=== PATIENT | female | born 1990 | race American Indian/Alaskan Native ===

== ENCOUNTER 2016-09-17 08:36 | Emergency (ER) | payer MEDICAID ==
[2016-09-17 09:28] VITALS: BP 116/73
[2016-09-17] MEDS ORDERED: MAGIC MOUTHWASH PO ONE (10:40)
--- NOTE | 2016-09-17 10:40 | Emergency Department Report ---
ED ENT HPI - General Chief complaint: Sore Throat Stated complaint: POSS STREP THROAT Time Seen by Provider: 09/17/16 10:18 Source: patient Mode of arrival: Ambulatory Limitations: No Limitations - History of Present Illness Initial comments: Patient is a 26-year-old female who presents to ED complaining of throat pain 4 days. Patient states pain started about 4 days ago and has been progressively worse. Patient states pain with swallowing and not difficulty eating due to pain. She describes pain as throbbing aching type pain with 8 out of 10 in intensity. Patient denies nausea/vomiting/cough/runny/abdominal pain/chest pain or shortness of breath. - Related Data Previous Rx's Medication Instructions Recorded Last Taken Type Ibuprofen [Motrin] 600 mg PO Q8H PRN #20 tablet 09/17/16 Unknown Rx predniSONE [Deltasone] 5 mg PO QDAY #6 tab 09/17/16 Unknown Rx Allergies Allergy/AdvReac Type Severity Reaction Status Date / Time No Known Allergies Allergy Unverified 09/17/16 09:26 ED Dental HPI - General Chief complaint: Sore Throat Stated complaint: POSS STREP THROAT Time Seen by Provider: 09/17/16 10:18 Source: patient Mode of arrival: Ambulatory Limitations: No Limitations - Related Data Previous Rx's Medication Instructions Recorded Last Taken Type Ibuprofen [Motrin] 600 mg PO Q8H PRN #20 tablet 09/17/16 Unknown Rx predniSONE [Deltasone] 5 mg PO QDAY #6 tab 09/17/16 Unknown Rx Allergies Allergy/AdvReac Type Severity Reaction Status Date / Time No Known Allergies Allergy Unverified 09/17/16 09:26 ED Review of Systems ROS: Stated complaint: POSS STREP THROAT Other details as noted in HPI Constitutional: denies: chills, fever Eyes: denies: eye pain, eye discharge, vision change ENT: throat pain. denies: ear pain, dental pain, hearing loss Respiratory: denies: cough, shortness of breath, wheezing Cardiovascular: denies: chest pain, palpitations Endocrine: no symptoms reported. denies: flushing, intolerance to cold, intolerance to heat Gastrointestinal: denies: abdominal pain, nausea, vomiting, diarrhea Genitourinary: denies: urgency, dysuria, discharge Musculoskeletal: denies: back pain, joint swelling, arthralgia Skin: denies: rash, lesions Neurological: denies: headache, weakness, paresthesias, abnormal gait Psychiatric: denies: anxiety, depression Hematological/Lymphatic: denies: easy bleeding, easy bruising, swollen glands ED Past Medical Hx - Past Medical History Previous Medical History?: No - Surgical History Past Surgical History?: No - Social History Smoking Status: Never Smoker Substance Use Type: None - Medications Home Medications: Home Medications Medication Instructions Recorded Confirmed Last Taken Type Ibuprofen [Motrin] 600 mg PO Q8H PRN #20 tablet 09/17/16 Unknown Rx predniSONE [Deltasone] 5 mg PO QDAY #6 tab 09/17/16 Unknown Rx ED Physical Exam - General Limitations: No Limitations General appearance: alert, in no apparent distress - Head Head exam: Present: atraumatic, normocephalic - Eye Eye exam: Present: normal appearance, PERRL, EOMI Pupils: Present: normal accommodation - ENT ENT exam: Present: mucous membranes moist - Expanded ENT Exam Expanded Ear exam: Present: normal external inspection Mouth exam: Present: normal external inspection, tongue normal. Absent: drooling, trismus, muffled voice Teeth exam: Present: normal inspection Throat exam: Positive: tonsillomegaly, tonsillar exudate, R peritonsillar mass, L peritonsillar mass - Neck Neck exam: Present: normal inspection, full ROM, lymphadenopathy. Absent: tenderness - Respiratory Respiratory exam: Present: normal lung sounds bilaterally. Absent: respiratory distress, wheezes, rales, rhonchi, stridor - Cardiovascular Cardiovascular Exam: Present: regular rate, normal rhythm. Absent: systolic murmur, diastolic murmur, rubs, gallop - GI/Abdominal GI/Abdominal exam: Present: soft, normal bowel sounds. Absent: tenderness, guarding, rebound - Extremities Exam Extremities exam: Present: normal inspection, full ROM. Absent: tenderness - Back Exam Back exam: Present: normal inspection, full ROM. Absent: CVA tenderness (R), CVA tenderness (L) - Neurological Exam Neurological exam: Present: alert, oriented X3 - Psychiatric Psychiatric exam: Present: normal affect, normal mood - Skin Skin exam: Present: warm, dry, intact, normal color. Absent: rash ED Course Vital Signs 09/17/16 09:26 Temperature 99.7 F H Pulse Rate 102 H Respiratory 16 Rate Blood Pressure 116/73 O2 Sat by Pulse 100 Oximetry ED Medical Decision Making - Medical Decision Making 26-year-old female presents with strep pharyngitis. ED course: Patient received Magic wash, Tylenol 650 mg. Rapid strep test orders. Rapid strep test positive. Discussed results with patient. Discussed patient treatment in the ER. Patient received 1.2 milliunits of penicillin IM. Discussed results with patient. Repeated vital signs prior to discharge. Vital signs temperature and pulse reduced. Patient patient to go home on prednisone. Discussed the patient took medication as prescribed. Discussed the patient includes a Tylenol when necessary for pain at home. Discussed the patient will follow-up with her primary care physician. Patient understands and will follow up. Critical care attestation.: If time is entered above; I have spent that time in minutes in the direct care of this critically ill patient, excluding procedure time. ED Disposition Clinical Impression: Streptococcal pharyngitis, Acute bacterial tonsillitis Disposition: DISCHARGED TO HOME OR SELFCARE Is pt being admited?: No Does the pt Need Aspirin: No Condition: Stable Instructions: Strep Throat (ED), Tonsillitis (ED) Prescriptions: predniSONE [Deltasone] 5 mg PO QDAY #6 tab Ibuprofen [Motrin] 600 mg PO Q8H PRN #20 tablet PRN Reason: Pain Referrals: PRIMARY CARE, [Primary Care Provider] - 3-5 Days Forms: Accompanied Note, Work/School Release Form(ED) Time of Disposition: 11:55
[2016-09-17] MEDS ORDERED: TYLENOL PO ONE (11:49)
[2016-09-17] MEDS ORDERED: BICILLIN L-A IM ONE (11:51)
== END 2016-09-17 12:47 | disposition home or self-care (01) ==
LOC: ED 08:36
DX: J02.0 Streptococcal pharyngitis (principal); J03.90 Acute tonsillitis, unspecified
CPT/HCPCS: 87430; 96372; 99282; J0561

== ENCOUNTER 2019-09-07 20:19 | Inpatient (IN) | payer MEDICAID ==
[2019-09-07] MEDS ORDERED: fentaNYL 100 MCG/2 ML INJ IV PRN (23:05)
[2019-09-07] MEDS ORDERED: ePHEDrine SULFATE 50 MG/1 ML INJ IV PRN (23:05)
[2019-09-07] MEDS ORDERED: ONDANSETRON 4 MG/2 ML INJ IV PRN (23:05)
[2019-09-07] MEDS ORDERED: PROMETHAZINE 25 MG TAB PO PRN (23:05)
[2019-09-07] MEDS ORDERED: BUTORPHANOL 2 MG/1 ML INJ IV PRN (23:05)
[2019-09-07] MEDS ORDERED: TERBUTALINE 1 MG/1 ML INJ IVP PRN (23:05)
[2019-09-07] MEDS ORDERED: MINERAL OIL 30 ML ORAL LIQD PO PRN (23:05)
[2019-09-07] MEDS ORDERED: AMPICILLIN/NS 2 GM/100 ML 2 GM/100 ML BAG IV ONE (23:05)
[2019-09-07] MEDS ORDERED: NALOXONE 0.4 MG/1 ML INJ IV PRN (23:05)
[2019-09-07] MEDS ORDERED: TERBUTALINE 1 MG/1 ML INJ SUB-Q PRN (23:05)
[2019-09-07] MEDS ORDERED: LIDOCAINE (2%) 20 MG/1 ML VIAL 20 ML MDV INFILTRATI ONE (23:05)
[2019-09-07] MEDS ORDERED: OXYTOCIN DRIP 30 UNITS/500 ML BAG IV SCH ×2 (23:45)
[2019-09-07] MEDS ORDERED: DINOPROSTONE 10 MG VAG SUPP VG ONE (23:48)
[2019-09-08 00:26] LABS: Hematocrit 33.7 % (30.3-42.9); Hemoglobin 10.9 gm/dl (10.1-14.3); Mean Corpuscular HGB Conc 33 % (30-34); Mean Corpuscular Volume 77 fl (79-97); Platelet Count 342 K/mm3 (140-440); Red Blood Count 4.37 M/mm3 (3.65-5.03); Red Cell Distribution Width 15.2 % (13.2-15.2)
[2019-09-08] MEDS: LACTATED RINGERS 1,000 ML IV SCH ×3 (00:38→16:29)
--- NOTE | 2019-09-08 00:42 | Ultrasound Report ---
ULTRASOUND OBSTETRIC INDICATION / CLINICAL INFORMATION: Presentation check. TECHNIQUE: Transabdominal. COMPARISON: None available. FINDINGS: Single fetus in cephalic position. Heart rate 1 40 bpm. Placenta is located fundally. IMPRESSION: 1. Single, living intrauterine Signer Name: Jeffrey Solares MD Signed: 09/08/2019 12:38 AM Workstation Name: [id number]
[2019-09-08] MEDS: AMPICILLIN/NS 1 GM/50 ML 1 GM/50 ML BAG IV SCH ×4 (04:21→16:27)
--- NOTE | 2019-09-08 08:36 | History and Physical Report ---
History of Present Illness Date of examination: 09/08/19 Date of admission: 09/07/19 20:19 Chief complaint: scheduled induction for morbid obesity History of present illness: Pt is a 29 year old -[place]ian female KARAN 09/10/19 at 39w5d who presents for scheduled induction of labor secondary to morbid obesity. She denies leakage of fluid or vaginal bleeding. She has had preantal care at [facility] with [facility]an[facility] by [facility] secondary to morbid obesity. She is GBS positive. Past History Past Medical History: other (Morbid Obesity) Past Surgical History: no surgical history Family/Genetic History: heart disease Social history: no significant social history - Obstetrical History Expected Date of Delivery: 09/10/19 Actual Gestation: 39 Week(s) 5 Day(s) : 8 Para: 6 Hx # Term Pregnancies: 6 Number of Pregnancies: 0 Spontaneous Abortions: 1 Induced : 0 Number of Living Children: 6 Medications and Allergies Allergies Allergy/AdvReac Type Severity Reaction Status Date / Time No Known Allergies Allergy Unverified 09/17/16 09:26 Home Medications Medication Instructions Recorded Confirmed Last Taken Type Ibuprofen [Motrin] 600 mg PO Q8H PRN #20 tablet 09/17/16 Unknown Rx predniSONE [Deltasone] 5 mg PO QDAY #6 tab 09/17/16 Unknown Rx Active Meds: Active Medications Butorphanol Tartrate (Stadol) 2 mg IV Q2H PRN PRN Reason: Pain , Severe (7-10) Ephedrine Sulfate (Ephedrine Sulfate) 10 mg IV Q2M PRN PRN Reason: Hypotension Fentanyl (Sublimaze) 100 mcg IV Q2H PRN PRN Reason: Labor Pain Oxytocin/Sodium Chloride (Pitocin/Ns 20 Unit/1000ml Drip) 20 units in 1,000 mls @ 125 mls/hr IV DIRECT BLAS Oxytocin/Sodium Chloride (Pitocin/Ns 30 Unit/500ml) 30 units in 500 mls @ 1 mls/hr IV TITR BLAS; Protocol Oxytocin/Sodium Chloride (Pitocin/Ns 30 Unit/500ml) 30 units in 500 mls @ 2 mls/hr IV TITR BLAS; Protocol Lactated Ringer's (Lactated Ringers) 1,000 mls @ 125 mls/hr IV DIRECT BLAS Last Admin: 09/08/19 00:38 Dose: 125 mls/hr Documented by: Ampicillin Sodium (Ampicillin/Ns 1 Gm/50 Ml) 1 gm in 50 mls @ 100 mls/hr IV Q4 HR [facility]; Protocol Last Admin: 09/08/19 04:21 Dose: 100 mls/hr Documented by: Mineral Oil (Mineral Oil) 30 ml PO QHS PRN PRN Reason: Constipation Naloxone HCl (Naloxone) 0.1 mg IV Q2MIN PRN PRN Reason: Res Rate </= 8 or 02 SAT < 92% Ondansetron HCl (Zofran) 4 mg IV Q8H PRN PRN Reason: Nausea And Vomiting Promethazine HCl (Phenergan) 25 mg PO Q6H PRN PRN Reason: Nausea And Vomiting Terbutaline Sulfate (Brethine) 0.25 mg SUB-Q ONCE PRN PRN Reason: Hyperstimulation/Hypertonicity Terbutaline Sulfate (Brethine) 0.25 mg IVP ONCE PRN PRN Reason: Hyperstimulation/Hypertonicity Review of Systems All systems: negative - Vital Signs Vital signs: Vital Signs Pulse BP Pulse Ox 57 L 129/77 98 09/07/19 21:56 09/07/19 21:56 09/07/19 21:56 Temp Pulse Resp BP Pulse Ox 98.1 F 85 20 123/72 98 09/08/19 07:40 09/08/19 08:25 09/07/19 22:14 09/08/19 07:40 09/08/19 08:25 - Physical Exam Breasts: Positive: deferred Cardiovascular: Regular rate Lungs: Positive: Clear to auscultation Abdomen: Positive: soft (obese, gravid ) Uterus: Positive: enlarged (gravid ) Extremities: Positive: edema (trace ) - Obstetrical FHR: auscultation normal Uterine Contraction Monitor Mode: External Cervical Dilatation: 2 (per RN ) Uterine Contraction Pattern: Irregular Uterine Tone Measurement Phase: Resting Uterine Contraction Intensity: Mild Results Result Diagrams: 09/07/19 23:40 Abnormal lab results 09/07/19 Range/Units 23:40 MCV 77 L (79-97) fl MCH 25 L (28-32) pg All other labs normal. Assessment and Plan A: IUP at 39w5d Morbid Obesity GBS positive P: Admit to labor and delivery Continue induction of labor GBS prophylaxis Routine intrapartum care
--- NOTE | 2019-09-08 12:54 | Event Note ---
Date: 09/08/19 Pt somewhat uncomfortable with contractions. SVE: /-3. Cervidil removed previously. Continue routine intrapartum care. Begin pitocin augmentation.
[2019-09-08] MEDS ORDERED: DEXMEDETOMIDINE 200 MCG/2 ML VIAL IV ONE (14:42)
--- NOTE | 2019-09-08 15:22 | Anesthesia Consultation ---
Anesthesia Consult and Med Hx Date of service: 09/08/19 - Airway Anesthetic Teeth Evaluation: Good, Poor ROM Head & Neck: Adequate Mental/Hyoid Distance: Adequate Mallampati Class: Class III Intubation Access Assessment: Probably Good - Pulmonary Exam CTA: Yes - Cardiac Exam Cardiac Exam: RRR - Pre-Operative Health Status ASA Pre-Surgery Classification: ASA3 Proposed Anesthetic Plan: Epidural - Pulmonary Hx Smoking: No Hx Asthma: No Hx Respiratory Symptoms: No SOB: No COPD: No Home Oxygen Therapy: No Hx Pneumonia: No Hx Sleep Apnea: No - Cardiovascular System Hx Hypertension: No Hx Coronary Artery Disease: No Hx Heart Attack/AMI: No Hx Angina: No Hx Percutaneous Transluminal Coronary Angioplasty (PTCA): No Hx Cardia Arrhythmia: No Hx Pacemaker: No Hx Internal Defibrillator: No Hx Valvular Heart Disease: No Hx Heart Murmur: No Hx Peripheral Vascular Disease: No - Central Nervous System Hx Neuromuscular Disorder: No Hx Seizures: No CVA: No Hx Back Pain: No Hx Psychiatric Problems: No - Gastrointestinal Hx Ulcer: No Hx Gastroesophageal Reflux Disease: Yes - Endocrine Hx Renal Disease: No Hx End Stage Renal Disease: No Hx Cirrhosis: No Hx Liver Disease: No Hx Insulin Dependent Diabetes: No Hx Non-Insulin Dependent Diabetes: No Hx Thyroid Disease: No Hx Hypothyroidism: No Hx Hyperthyroidism: No - Hematic Hx Anemia: No Hx Sickle Cell Disease: No - Other Systems Hx Alcohol Use: No Hx Substance Use: No Hx Cancer: No Hx Obesity: Yes (BMI 51.1)
[2019-09-08] MEDS ORDERED: NALOXONE 2 MG/2 ML INJ IV PRN (15:23)
[2019-09-08] MEDS ORDERED: ePHEDrine SULFATE 50 MG/1 ML INJ IV PRN (15:23)
[2019-09-08] MEDS ORDERED: fentaNYL-BUPIV 2 MCG/ML-0.125% 200 MCG/100 ML BAG EPIDURAL SCH (16:00)
[2019-09-08] MEDS ORDERED: BUPIVACAINE/PF (0.25%) 2.5 MG/ML 10 ML VIAL INFILTRATI ONE (16:29)
[2019-09-08] MEDS: OXYTOCIN 20 UNIT/1000ML DRIP 20 UNITS/1,000 ML BAG IV SCH ×2 (17:07→18:01)
--- NOTE | 2019-09-08 17:35 | Procedure Note ---
OB Delivery Note - Delivery Date of Delivery: 09/08/19 Surgeon: MARINO PATIRCIA Estimated blood loss: other (400 mL) - Vaginal Delivery presentation: vertex Delivery position: OA Intrapartum events: meconium, mult.variable deceleratio Delivery induction: cervidil Delivery augmentation: rupture of membranes, pitocin Delivery monitor: external FHT, external uterine Route of delivery: Delivery placenta: spontaneous Delivery cord: nuchal cord Episiotomy: none Delivery laceration: none Anesthesia: epidural - A at 1 minute: 4 at 5 minutes: 9 Gender: Female (3629g (8lb 0oz) @ 1702 pm)
[2019-09-08] MEDS ORDERED: ACETAMINOPHEN 325 MG TAB PO PRN (21:18)
[2019-09-08] MEDS ORDERED: PROMETHAZINE 25 MG RECT SUPP PR PRN (21:18)
[2019-09-08] MEDS ORDERED: ONDANSETRON 4 MG/2 ML INJ IV PRN (21:18)
[2019-09-08] MEDS ORDERED: BENZOCAINE/MENTHOL 20/0.5% TOP SPRAY 56 GM TP PRN (21:18)
[2019-09-08] MEDS ORDERED: diphenhydrAMINE 25 MG CAP PO PRN (21:18)
[2019-09-08] MEDS ORDERED: OXYTOCIN 20 UNIT/1000ML DRIP 20 UNITS/1,000 ML BAG IV SCH (21:18)
[2019-09-08] MEDS ORDERED: HYDROcodone/ACETAMINOPHEN 5-325 MG TAB PO PRN (21:18)
[2019-09-08] MEDS ORDERED: PROMETHAZINE 25 MG TAB PO PRN (21:18)
[2019-09-08] MEDS ORDERED: LANOLIN/ZINC/DIMETHICONE (LANSINOH) 7 GM TP PRN ×2 (21:18)
[2019-09-08] MEDS ORDERED: WITCH HAZEL/ GLYCERIN PAD TP PRN (21:18)
[2019-09-08] MEDS: FERROUS SULFATE 325 MG TAB PO SCH (23:08)
[2019-09-08] MEDS: IBUPROFEN 600 MG TAB PO SCH (23:08)
[2019-09-09] MEDS ORDERED: MEASLES, MUMPS & RUBELLA 12,500 UNIT/0.5 ML VACCINE SUB-Q ONE (06:00)
[2019-09-09] MEDS ORDERED: TETANUS,DIPH,PERTUSS(ACELL) VACCINE 0.5 ML SYRINGE IM ONE (06:00)
[2019-09-09] MEDS: IBUPROFEN 600 MG TAB PO SCH ×2 (06:08→18:05)
[2019-09-09 06:47] LABS: Hematocrit 30.8 % (30.3-42.9)
[2019-09-09] MEDS: FERROUS SULFATE 325 MG TAB PO SCH ×2 (10:08→22:50)
[2019-09-09] MEDS: MAGNESIUM HYDROXIDE (MOM) ORAL LIQD UDC PO PRN ×2 (10:12→20:10)
--- NOTE | 2019-09-09 14:07 | Progress Note ---
Assessment and Plan A: PPD#1 s/p at term, Morbid Obesity; Asymptomatic anemia P: Routine care. Anticipate discharge tomorrow. Subjective - Subjective Date of service: 09/10/19 Principal diagnosis: s/p at term Interval history: Pt without complaints. Patient reports: appetite normal, voiding normally, pain well controlled, ambulating normally [place]: doing well Objective - Vital Signs Latest vital signs: Vital Signs Temp Pulse Resp BP BP Pulse Ox 09/09/19 09:41 97.5 F L 84 18 122/59 98 09/09/19 07:08 18 09/09/19 06:08 18 09/09/19 05:05 98.0 F 92 H 20 111/64 95 09/09/19 04:17 18 09/09/19 03:17 18 09/09/19 00:08 18 09/08/19 23:08 18 09/08/19 21:30 97.9 F 83 18 121/74 98 09/08/19 20:57 86 99 09/08/19 20:52 96 H 99 09/08/19 20:47 88 99 09/08/19 20:42 92 H 99 09/08/19 20:37 90 99 09/08/19 20:32 95 H 100 09/08/19 20:27 89 100 09/08/19 20:22 92 H 100 09/08/19 20:17 74 100 09/08/19 20:13 78 122/60 09/08/19 20:12 77 100 09/08/19 20:07 73 100 09/08/19 20:02 72 100 09/08/19 19:57 79 100 09/08/19 19:52 69 100 09/08/19 19:47 72 100 09/08/19 19:42 80 100 09/08/19 19:37 94 H 100 09/08/19 19:32 98 H 100 09/08/19 19:27 84 100 09/08/19 19:22 92 H 100 09/08/19 19:17 69 100 09/08/19 19:12 72 117/56 100 09/08/19 19:07 68 100 09/08/19 19:02 71 100 09/08/19 19:00 65 117/56 09/08/19 18:57 68 99 09/08/19 18:52 79 100 09/08/19 18:47 72 100 09/08/19 18:42 83 100 09/08/19 18:37 74 100 09/08/19 18:32 85 100 09/08/19 18:27 69 100 09/08/19 18:22 70 100 09/08/19 18:17 74 100 09/08/19 18:12 75 99 09/08/19 18:11 97.9 F 09/08/19 18:07 72 100 09/08/19 18:02 72 98 09/08/19 17:57 75 99 09/08/19 17:52 67 98 09/08/19 17:47 70 98 09/08/19 17:42 74 99 09/08/19 17:37 76 100 09/08/19 17:32 80 98 09/08/19 17:30 16 112/55 09/08/19 17:28 82 112/55 09/08/19 17:27 83 98 09/08/19 17:01 77 98 09/08/19 16:56 65 99 09/08/19 16:45 88 95/50 09/08/19 16:44 82 100 09/08/19 16:39 77 100 09/08/19 16:36 107 H 120/58 09/08/19 16:34 88 100 09/08/19 16:31 90 119/63 09/08/19 16:29 89 100 09/08/19 16:24 91 H 100 09/08/19 16:19 90 100 09/08/19 16:15 88 129/59 09/08/19 16:14 87 100 09/08/19 16:09 117 H 98 09/08/19 16:04 84 99 09/08/19 16:01 83 143/61 09/08/19 15:59 94 H 99 09/08/19 15:54 81 99 09/08/19 15:49 81 96 09/08/19 15:44 71 117/59 96 09/08/19 15:39 71 97 09/08/19 15:34 69 99 09/08/19 15:31 77 94 09/08/19 15:30 75 117/72 09/08/19 15:29 71 96 09/08/19 15:24 72 97 09/08/19 15:19 78 100 09/08/19 15:14 63 98 12/27/19 15:13 81 125/61 09/08/19 15:11 73 123/62 09/08/19 15:09 68 118/61 99 09/08/19 15:07 74 127/65 09/08/19 15:05 83 123/59 09/08/19 15:04 73 98 09/08/19 15:03 155 H 116/56 09/08/19 15:01 83 120/55 09/08/19 14:59 81 129/58 99 09/08/19 14:58 90 130/76 09/08/19 14:55 86 112/75 09/08/19 14:54 79 99 09/08/19 14:53 86 109/63 09/08/19 14:51 86 132/66 09/08/19 14:49 75 132/74 99 09/08/19 14:47 86 131/70 09/08/19 14:46 90 143/68 09/08/19 14:44 92 H 100 09/08/19 14:42 91 H 164/70 09/08/19 14:39 87 100 09/08/19 14:34 81 100 09/08/19 14:29 86 100 09/08/19 14:24 86 99 09/08/19 14:19 77 100 09/08/19 14:14 65 99 09/08/19 14:09 77 99 Intake and Output 09/08/19 09/09/19 09/09/19 22:59 06:59 14:59 Intake Total 448.667 600 240 Output Total 200 800 Balance 248.667 -200 240 Intake: IV 448.667 Lactated Ringers 1,000 ml 329.167 @ 125 mls/hr IV DIRECT BLAS Rx#:[id number] PITOCin/NS 20 UNIT/1000ML 112.5 DRIP 20 units In 1,000 ml @ 125 mls/hr IV DIRECT BLAS Rx#:[id number] PITOCin/NS 30 UNIT/500ML 7 30 units In 500 ml @ 1 MILLIUNITS/MIN 1 mls/hr IV TITR BLAS Rx#:[id number] Oral 120 240 Intake, Free Water 480 Output: Urine 200 800 Indwelling Catheter 100 Self-Catheterization 100 Void 800 Other: Total, Intake Amount 120 240 Total, Output Amount 100 350 # Voids Void 1 Estimated Blood Loss 400 - Exam Breasts: Present: deferred Cardiovascular: Present: Regular rate Lungs: Present: Clear to auscultation Abdomen: Present: soft (obese ) Uterus: Present: fundal height at umbilicus Extremities: Present: edema (trace ) - Labs Labs: Abnormal lab results 09/09/19 Range/Units 05:54 Hgb 10.0 L (10.1-14.3) gm/dl
[2019-09-10] MEDS: IBUPROFEN 600 MG TAB PO SCH ×3 (05:26→11:46)
--- NOTE | 2019-09-10 05:33 | Discharge Summary ---
Providers - Providers Date of Admission: 09/07/19 20:19 Date of discharge: 09/10/19 Attending physician: MEGAN ZAMBRANO MD Primary care physician: MEGAN ZAMBRANO MD Hospitalization Reason for admission: induction of labor Delivery: Procedure details: Please see delivery note. Other procedures: none complications: none Discharge diagnosis: IUP at term delivered [place] baby: female Hospital course: Pt was admitted for induction of labor secondary to morbid obesity. She went on to have a spontaneous vaginal delivery which she tolerated well. Her care was uncomplicated and she met discharge criteria on PPD#2. She will follow up in the office in 4 wks. Condition at discharge: Stable Disposition: - TO HOME OR SELFCARE - Discharge Diagnoses (1) Term of female Status: Acute (2) Morbid obesity Status: Acute (3) Anemia Status: Acute Qualifiers: Anemia type: unspecified type Qualified Code(s): D64.9 - Anemia, unsp ecified Plan - Discharge Medications Prescriptions: Ferrous Sulfate [Feosol 325 MG tab] 325 mg PO BID #60 tablet Ibuprofen [Motrin] 800 mg PO Q8HR PRN #30 tablet PRN Reason: Pain, Moderate (4-6) HYDROcodone/APAP 5-325 [Hessmer 5/325] 1 each PO Q6HR PRN #20 tablet PRN Reason: Pain - Provider Discharge Summary Activity: routine, no sex for 6 weeks, no heavy lifting 4 weeks, no strenuous exercise Diet: routine Instructions: routine Additional instructions: [] Smoking cessation referral if applicable(refer to patient education folder for contact #) [] Refer to [facility]'s [facility] Booklet Call your doctor immediately for: * Fever > 100.5 * Heavy vaginal bleeding ( >1 pad per hour) * Severe persistent headache * Shortness of breath * Reddened, hot, painful area to leg or breast * Drainage or odor from incision. * Keep incision clean and dry at all times and follow doctor's instructions regarding bathing/showering - Follow up plan Follow up: MEGAN ZAMBRANO MD [Primary Care Provider] - 10/06/19 (Please schedule appt )
[2019-09-10] MEDS: FERROUS SULFATE 325 MG TAB PO SCH (11:46)
[2019-09-10 16:27] VITALS: BP 133/79
== END 2019-09-10 16:00 | disposition home or self-care (01) | DRG 775 ==
LOC: LD 20:19 → OB 09-08 21:17
PROVIDERS: ADMIT Obstetrics & Gynecology; ATTEND Obstetrics & Gynecology
PROC: 10E0XZZ Delivery of Products of Conception, External Approach (ICD-10-PCS; principal; 2019-09-08)
PROC: 3E0P7VZ Introduction of Hormone into Female Reproductive, Via Natural or Artificial Opening (ICD-10-PCS; 2019-09-08)
PROC: 3E0R3BZ Introduction of Anesthetic Agent into Spinal Canal, Percutaneous Approach (ICD-10-PCS; 2019-09-08)
PROC: 00HU33Z Insertion of Infusion Device into Spinal Canal, Percutaneous Approach (ICD-10-PCS; 2019-09-08)
PROC: 3E0234Z Introduction of Serum, Toxoid and Vaccine into Muscle, Percutaneous Approach (ICD-10-PCS; 2019-09-09)
DX: O77.0 Labor and delivery complicated by meconium in amniotic fluid (principal); O99.214 Obesity complicating childbirth; E66.01 Morbid (severe) obesity due to excess calories; O76 Abnormality in fetal heart rate and rhythm complicating labor and delivery; O69.81X0 Labor and delivery complicated by cord around neck, without compression, not applicable or unspecified; O99.824 Streptococcus B carrier state complicating childbirth; Z37.0 Single live birth; Z3A.39 39 weeks gestation of pregnancy; O99.02 Anemia complicating childbirth; D64.9 Anemia, unspecified; Z23 Encounter for immunization
CPT/HCPCS: 36415; 59025; 59200; 76815; 85014; 85018; 85027; 86850; 86900; 86901; 96360; 96361; 96365; 96366; 96367; G0378; J0290; J0595; J2590; J3490; J7120

== ENCOUNTER 2019-11-08 06:47 | Day surgery (SDC) | payer MEDICAID ==
[~2019-11-08 06:47] MED LIST: BACTERIOSTATIC SODIUM CHLORIDE 0.9% 30 ML VIAL INFILTRATI ONE
[2019-11-08] MEDS ORDERED: LACTATED RINGERS 1,000 ML IV SCH (07:12)
[2019-11-08] MEDS ORDERED: fentaNYL 100 MCG/2 ML INJ IV PRN (07:27)
--- NOTE | 2019-11-08 07:29 | Short Stay Summary ---
Short Stay Documentation Date of service: 11/08/19 Narrative H&P: 29y/o with undesired fertility. The patient has elected for permanent sterilization. Other contraceptive options were offered to the patient. - History Principal diagnosis: Undesired fertility Past Medical History: other (Morbid obesity) Past Surgical History: No surgical history Social history: - Allergies and Medications Current Medications: Allergies No Known Allergies Allergy (Unverified 09/17/16 09:26) Home Medications Medication Instructions Recorded Confirmed Last Taken Type Ferrous Sulfate [Feosol 325 MG tab] 325 mg PO BID #60 tablet 09/09/19 10/27/19 Rx Active Medications Lactated Ringer's (Lactated Ringers) 1,000 mls @ 75 mls/hr IV DIRECT BLAS - Physical exam General appearance: no acute distress Integumentary: no rash HEENT: Atraumatic Lungs: Clear to auscultation Breasts: deferred Heart: Regular rate Gastrointestinal: normal Female Genitourinary: deferred Rectal Exam: deferred Extremities: no ischemia Neurological: Normal gait - Brief post op/procedure progress note Date of procedure: 11/08/19 Pre-op diagnosis: Undesired fertility Post-op diagnosis: same Procedure: Laparoscopic bilateral tubal ligation with Filshie clips Anesthesia: GETA Surgeon: DUNCAN BUENO Estimated blood loss: none Pathology: none Condition: stable - Hospital course Hospital course: The patient was admitted the day of surgery and underwent a laparoscopic tubal ligation. Please see operative note for details of surgery. Postoperative course was uneventful. - Disposition Condition at discharge: Good Disposition: DC-01 TO HOME OR SELFCARE - Discharge Diagnoses (1) Unwanted fertility Status: Acute Short Stay Discharge Plan Activity: other (Pelvic rest for 1 week) Diet: regular Additional Instructions: Follow-up is not required Follow-up as needed Prescriptions: Ibuprofen [Motrin] 800 mg PO Q8HR PRN #60 tablet PRN Reason: Pain, Mild (1-3) HYDROcodone/APAP 5-325 [[place] 5/325] 1 each PO Q6HR PRN #20 tablet PRN Reason: Pain
--- NOTE | 2019-11-08 07:33 | Anesthesia Day of Surgery ---
Anesthesia Day of Surgery - Day of Surgery Patient Examined: Yes Patient H&P Reviewed: Yes Patient is NPO: Yes
--- NOTE | 2019-11-08 07:33 | Anesthesia Consultation ---
Anesthesia Consult and Med Hx Date of service: 11/08/19 - Airway Anesthetic Teeth Evaluation: Good ROM Head & Neck: Adequate Mental/Hyoid Distance: Adequate Mallampati Class: Class I Intubation Access Assessment: Probably Good - Pulmonary Exam CTA: Yes - Cardiac Exam Cardiac Exam: RRR - Pre-Operative Health Status ASA Pre-Surgery Classification: ASA2 Proposed Anesthetic Plan: General - Pulmonary Hx Smoking: No Hx Respiratory Symptoms: No Hx Sleep Apnea: No - Cardiovascular System Hx Hypertension: No Hx Heart Attack/AMI: No Hx Percutaneous Transluminal Coronary Angioplasty (PTCA): No - Central Nervous System CVA: No - Gastrointestinal Hx Gastroesophageal Reflux Disease: Yes (diet controlled) - Endocrine Hx Renal Disease: No Hx Liver Disease: No Hx Insulin Dependent Diabetes: No Hx Non-Insulin Dependent Diabetes: No Hx Thyroid Disease: No - Other Systems Hx Obesity: Yes (BMI 49) - Additional Comments Anesthesia Medical History Comments: No hx anesthetic complications.
[2019-11-08] MEDS ORDERED: MIDAZOLAM 2 MG/2 ML INJ IV NR (08:00)
[2019-11-08] MEDS ORDERED: CELECOXIB 200 MG CAP PO NR (08:00)
[2019-11-08] MEDS ORDERED: GABAPENTIN 300 MG CAP PO NR (08:00)
[2019-11-08] MEDS ORDERED: ONDANSETRON 4 MG/2 ML INJ ONE ×2 (08:20→09:41)
[2019-11-08] MEDS ORDERED: propofoL 200 MG/20 ML VIAL IV ONE (08:20)
[2019-11-08] MEDS ORDERED: LIDOCAINE MPF (2%) 20 MG/1 ML VIAL 5 ML ONE (08:20)
[2019-11-08] MEDS ORDERED: GLYCOPYRROLATE 0.4 MG/2 ML INJ ONE (08:20)
[2019-11-08] MEDS ORDERED: dexAMETHasone 20 MG/5 ML VIAL ONE (08:20)
[2019-11-08] MEDS ORDERED: NEOSTIGMINE 10MG/10 ML INJ MDV ONE (08:20)
[2019-11-08] MEDS ORDERED: PHENYLEPHRINE/NS 1,000 MCG/10 ML SYRINGE (OR USE) IV ONE (08:20)
[2019-11-08] MEDS ORDERED: ROCURONIUM 50 MG/5 ML INJ IV ONE (08:20)
[2019-11-08] MEDS ORDERED: fentaNYL 100 MCG/2 ML INJ ONE ×2 (08:20→08:59)
[2019-11-08] MEDS ORDERED: BUPIVACAINE/PF (0.5%) 5 MG/1 ML 10 ML VIAL INFILTRATI ONE ×2 (08:50→09:00)
[2019-11-08] MEDS ORDERED: SODIUM CHLORIDE 0.9% IRR 1,500 ML BOTTLE IR ONE (09:00)
[2019-11-08] MEDS ORDERED: ONDANSETRON 4 MG/2 ML INJ IV ONE (09:40)
--- NOTE | 2019-11-08 09:50 | Operative Report ---
Operative Report Operative Report: Date of surgery: November 08, 2019 Preoperative diagnosis: Unwanted fertility Postoperative diagnosis: Same as above Procedure: Laparoscopic bilateral tubal ligation with Filshie clips Surgeon: Vivian Pollard M.D. Anesthesia: General endotracheal anesthesia Estimated blood loss: Minimal Findings: Normal uterus tubes and ovaries Indication: 29-year-old -0-1-7 with undesired fertility. The patient has elected for permanent sterilization. Procedure: The patient was taken to the operating room and given general endotracheal anesthesia without complication. The patient is prepped and draped in a normal sterile fashion. A bivalve speculum was placed in the patient's vagina and a single-tooth tenaculum was placed on the anterior lip of the cervix .A uterine acorn manipulator was placed, and the bivalve speculum was then removed. Attention was then turned to the patient's abdomen where a 5 mm infraumbilical skin incision was then made. A Veress needle was placed and peritoneal entry was verified water-filled syringe. Insufflation of the peritoneal cavity was performed with CO2 gas. A 5 mm trocar was placed and the laparoscope was then inserted. The patient was then placed in Trendelenburg. A 7 mm suprapubic skin incision was then made. Under direct visualization a 7 mm trocar was then placed. General survey of the patient's abdomen revealed normal uterus tubes and ovaries. The fallopian tube was then followed out to the fimbriated end. A Filshie clip was placed, on the ampullary portion of the tube. An additional clamp was placed on the right fallopian tube. Attention was then turned to the left fallopian tube where a Filshie clip was placed on the ampullary portion of the fallopian tube. The 7 mm trocar was then removed. The pneumoperitoneum was then released. The 5 mm trocar laparoscope was then removed. The skin incisions were then closed with 4-0 Monocryl. The incisions were injected with quarter percent Marcaine. Dressings were applied to the incision. The vaginal instruments were then removed atraumatically. Then successfully extubated and taken to the recovery room. All sponge laps and needle counts were correct x2.
[2019-11-08] MEDS ORDERED: IBUPROFEN 800 MG TAB PO PRN (10:12)
[2019-11-08 12:34] VITALS: BP 135/74
--- NOTE | 2019-11-08 13:36 | Post Anesthesia Evaluation ---
- Post Anesthesia Evaluation Patient Participated: Yes Airway Patent: Yes Stable Respiratory Function: Yes Nausea/Vomiting: No Temp > 96.8F: Yes Pain Manageable: Yes Adequeate Hydration: Yes Anesthesia Complications: No Block Receding Appropriately: Not Applicable Patient on Ventilator: No
== END 2019-11-08 12:25 | disposition home or self-care (01) ==
LOC: OR 06:47
PROVIDERS: ATTEND Obstetrics & Gynecology
DX: Z30.2 Encounter for sterilization (principal); D64.9 Anemia, unspecified; K21.9 Gastro-esophageal reflux disease without esophagitis; E66.01 Morbid (severe) obesity due to excess calories; Z79.899 Other long term (current) drug therapy; Z68.42 Body mass index [BMI] 45.0-49.9, adult; Z82.49 Family history of ischemic heart disease and other diseases of the circulatory system
CPT/HCPCS: 58671; 81025; J1100; J2250; J2370; J2405; J2704; J2710; J3010; J7120